=== PATIENT | male | born 1990 | race Caucasian/White ===

== ENCOUNTER 2019-07-31 17:28 | Emergency (ER) | payer MEDICAID ==
[~2019-07-31] VITALS: Ht 177.8 cm; Wt 86.2 kg
[2019-07-31 17:43] VITALS: BP 136/95
--- NOTE | 2019-07-31 18:20 | NUR ---
Patient discharged to home in stable condition. Written and verbal after care instructions given. Patient verbalizes understanding of instruction. Pt ambulatory with a steady gait
--- NOTE | 2019-07-31 18:21 | NUR ---
medication prescription refill given to patient
== END 2019-07-31 18:21 | disposition home or self-care (01) ==
LOC: ER 17:32
DX: F41.9 Anxiety disorder, unspecified (principal); R00.2 Palpitations; Z88.8 Allergy status to other drugs, medicaments and biological substances

== ENCOUNTER 2019-10-23 16:30 | Emergency (ER) | payer MEDICAID ==
[~2019-10-23] VITALS: Ht 182.9 cm; Wt 95.3 kg
--- NOTE | 2019-10-23 16:47 | NUR ---
CAME IN FOR GENERALIZED WEAKNESS, SOB X LOSS SENSE OF TASTE SINCE THIS AM. TO ER BED 7, HOOKED TO MONITOR, CHANGED TO HOSP GOWN, WARM BLANKET PROVIDED, PATIENT AAO x 4, AWAITING MD FELIX.
--- NOTE | 2019-10-23 17:48 | NUR ---
LAINE VELARDE AT BEDSIDE
--- NOTE | 2019-10-23 18:17 | NUR ---
COVID SWAB DONE AND SENT TO LAB
--- NOTE | 2019-10-23 18:21 | NUR ---
Patient discharged to home in stable condition. Written and verbal after care instructions given. Patient verbalizes understanding of instruction.
[2019-10-23 18:40] VITALS: BP 124/71
== END 2019-10-23 18:21 | disposition home or self-care (01) ==
LOC: ER 16:34
DX: B34.9 Viral infection, unspecified (principal); Z20.828 Contact with and (suspected) exposure to other viral communicable diseases; I10 Essential (primary) hypertension; F41.9 Anxiety disorder, unspecified
CPT/HCPCS: 99283; C9803; U0003

== ENCOUNTER 2019-10-25 11:26 | Emergency (ER) | payer MEDICAID ==
[~2019-10-25] VITALS: Ht 182.9 cm; Wt 90.7 kg
[2019-10-25] MEDS ORDERED: DEXAMETHASONE SOD PHOSPHATE 10 MG/ML VIAL ONE (11:53)
[2019-10-25] MEDS ORDERED: ALBUTEROL FS 2.5 MG/3 ML VIAL.NEB NEB ONE (12:00)
[2019-10-25] MEDS ORDERED: IPRATROPIUM NEB FS 0.5 MG/2.5 ML AMPUL.NEB NEB ONE (12:00)
[2019-10-25] MEDS ORDERED: DEXAMETHASONE SOD PHOSPHATE 10 MG/ML VIAL IV ONE (12:00)
[2019-10-25] MEDS ORDERED: IPRATROPIUM NEB FS 0.5 MG/2.5 ML AMPUL.NEB ONE (12:04)
[2019-10-25] MEDS ORDERED: ALBUTEROL FS 2.5 MG/3 ML VIAL.NEB ONE (12:04)
--- NOTE | 2019-10-25 12:07 | NUR ---
BIBS FROM HOME TP ER BED 7. AAOX4. SOB, TACHYPNEIC. AMBULATORY. CAME IN FOR SOB AND FEELING WEAK. PER PT, HE WAS HERE 2 DAYS AGO AND GOT TESTED FOR COVID WHICH IS NEGATIVE. PT IS NOTED WHEEZING BILATERALLY WITH LEFT AND RIGHT CHEST PAIN WHICH IS EXACERBATED BY COUGH. PT NOTED SATTING @ 99% ON RA. PT IS ALSO NOTED WITH NON PRODUCTIVE COUGH. PT IS AFEBRILE. MD WAS AT THE BEDSIDE FOR EVAL. ORDERS RECEIVED NOTED AND CARRIED OUT.
[2019-10-25 12:29] LABS: EOSINOPHILS % (AUTO) 1.1 % (0.0-6.0); HEMATOCRIT 39 % (39-51); LYMPHOCYTES # (AUTO) 1.9 /CMM (0.8-4.8); LYMPHOCYTES % (AUTO) 38.3 % (20.0-44.0); MEAN CORPUSCULAR HGB CONC 33 g/dl (31.0-36.0); MEAN CORPUSCULAR VOLUME 90 fL (80-96); MONOCYTES # (AUTO) 0.4 /CMM (0.1-1.30); MONOCYTES % (AUTO) 8.8 % (2.0-12.0); NEUTROPHILS # (AUTO) 2.5 /CMM (1.8-8.9); NEUTROPHILS % (AUTO) 50.8 % (43.0-81.0); PLATELET COUNT (AUTO) 232 /CMM (150-450); RED BLOOD CELL COUNT(AUTO) 4.36 MIL/uL (4.5-6.0); WHITE BLOOD COUNT (AUTO) 4.9 K/uL (4.3-11.0)
[2019-10-25 12:36] LABS: CALCIUM, SERUM 8.6 mg/dL (8.5-10.1); POTASSIUM 3.4 mmol/L (3.5-5.1)
[2019-10-25 13:01] LABS: B-TYPE NATRIURETIC PEPTIDE 7 PG/ML (0-125)
--- NOTE | 2019-10-25 13:27 | NUR ---
Patient discharged to home in stable condition. Written and verbal after care instructions given. Patient verbalizes understanding of instruction.IV removed. Catheter intact and site benign. Pressure and 4x4 applied to site. No bleeding noted. Pt ambulatory with a steady gait
[2019-10-25 13:37] VITALS: BP 125/78
== END 2019-10-25 13:37 | disposition home or self-care (01) ==
LOC: ER 11:28
DX: B34.9 Viral infection, unspecified (principal); R05 Cough; R06.02 Shortness of breath; Z20.828 Contact with and (suspected) exposure to other viral communicable diseases; F41.9 Anxiety disorder, unspecified
CPT/HCPCS: 36415; 71045; 80048; 83880; 84484; 85025; 87426; 93005; 94640; 96374; 99285; J1100